=== PATIENT | male | born 1995 | race Caucasian/White ===

== ENCOUNTER 2021-08-02 02:34 | Emergency (ER) | payer OTHER ==
[~2021-08-02] VITALS: Ht 177.8 cm; Wt 68.0 kg
[2021-08-02] MEDS ORDERED: CLONAZEPAM 0.50.5 M1 PO (02:53)
[2021-08-02] MEDS ORDERED: KEPPRA XR500 MG PO (02:53)
[2021-08-02 04:02] VITALS: BP 111/76
== END 2021-08-02 04:03 | disposition home or self-care (01) ==
LOC: M.ERS 02:34
DX: S43.005A Unspecified dislocation of left shoulder joint, initial encounter (principal); Z79.899 Other long term (current) drug therapy; X50.1XXA Overexertion from prolonged static or awkward postures, initial encounter; Y93.89 Activity, other specified; Y92.89 Other specified places as the place of occurrence of the external cause; Y99.8 Other external cause status

== ENCOUNTER 2021-11-29 20:32 | Emergency (ER) | payer OTHER ==
[~2021-11-29] VITALS: Ht 177.8 cm; Wt 70.3 kg
[~2021-11-29 20:32] MED LIST: CLONAZEPAM 0.50.5 M1 PO; KEPPRA XR500 MG PO
[2021-11-30 03:20] VITALS: BP 120/79
== END 2021-11-30 03:20 | disposition home or self-care (01) ==
LOC: M.ERS 20:32
DX: M24.411 Recurrent dislocation, right shoulder (principal); Z79.899 Other long term (current) drug therapy